=== PATIENT | male | born 1945 | race Caucasian/White ===

== ENCOUNTER → 2017-06-16 | Outpatient (CLI) | payer MEDICARE ==
[~2017-06-16] MED LIST: ATOR40TA78 PO; CALC-39 PO; CHOL3000 PO; DOCO200C3 PO; HYDR-3237 PO; HYDR-3245 PO; LISI-167 PO; METH750T2 PO; METHOCARBAMOL PO; METO50TA82 PO; MULTIVITAMIN PO; NITR0.4T SL; SENN1TAB7 PO; ZINC PO
== END ==
LOC: RAD 17:08
PROVIDERS: ATTEND Registered Nurse Registered Nurse First Assistant
DX: M47.816 Spondylosis without myelopathy or radiculopathy, lumbar region (principal); M41.86 Other forms of scoliosis, lumbar region; M43.26 Fusion of spine, lumbar region; Z98.890 Other specified postprocedural states
CPT/HCPCS: 72082; 72110